=== PATIENT | female | born 1985 | race Two or more races ===

== ENCOUNTER 2017-05-07 20:52 | Emergency (ER) | payer MEDICAID ==
[~2017-05-07] VITALS: Ht 157.5 cm; Wt 63.1 kg
[2017-05-07 23:01] LABS: HEMATOCRIT 39.2 % (34.6-47.8); HEMOGLOBIN 13.4 g/dL (11.7-16.4); WHITE BLOOD COUNT 6.1 x10^3/uL (3.4-10)
[2017-05-07 23:11] LABS: BLOOD UREA NITROGEN 16 mg/dL (7-18)
[2017-05-08 00:25] VITALS: BP 111/63
== END 2017-05-08 01:23 | disposition home or self-care (01) ==
LOC: ED 23:59
DX: O20.0 Threatened abortion (principal)
CPT/HCPCS: 36415; 76830; 80048; 81003; 82040; 84702; 85025; 86901; 99285

== ENCOUNTER 2017-05-10 11:18 | Emergency (ER) | payer MEDICAID ==
[~2017-05-10] VITALS: Ht 157.5 cm; Wt 62.6 kg
[2017-05-10 11:21] VITALS: BP 115/61
== END 2017-05-10 14:54 | disposition home or self-care (01) ==
LOC: ED 13:50
DX: O20.0 Threatened abortion (principal)
CPT/HCPCS: 36415; 76801; 81003; 84702; 86901; 99284